=== PATIENT | male | born 1955 | race Caucasian/White ===

== ENCOUNTER → 2024-05-24 10:53 | Outpatient (REF) | payer MEDICARE, SELFPAY ==
[2024-05-24 12:19] LABS: % Basophils 0.8 % (0-2); % Eosinophils 1.9 % (0-6); % Immature Granulocytes 0.4 % (0-0.5); % Lymphocytes 22.7 % (20.5-51.1); % Monocytes 15.4 % (1.7-9.3); % Neutrophils 58.8 % (42.2-75.2); Absolute Eosinophils 0.1 10^3/uL (0-0.7); Absolute Lymphocytes 1.2 10^3/uL (1.2-3.4); Absolute Monocytes 0.8 10^3/uL (0.1-0.6); Absolute Neutrophils 3.1 10^3/uL (1.4-6.5); Hematocrit 44.5 % (39.0-52.0); Hemoglobin 15.1 g/dL (13.0-18.0); Mean Corp Hgb Conc. 33.9 g/dL (33.0-37.0); Mean Corpuscular Hgb 30.1 pg (27.0-31.0); Mean Corpuscular Volume 88.6 fL (80.0-94.0); Mean Platelet Volume 8.7 fL (7.4-10.4); Nucleated Red Blood Cells % 0 % (-); Platelet Count 301 10^3/uL (130-400); Red Blood Cell Count 5.02 10^6/uL (4.70-6.10); Red Cell Dist. Width 12.9 % (11.5-14.5); White Blood Cell Count 5.2 10^3/uL (4.8-10.8)
[2024-05-24 12:37] LABS: ALT (SGPT) 17 U/L (0-50); AST (SGOT) 24 U/L (17-59); Albumin 4.2 g/dl (3.5-5.0); Alkaline Phosphatase 126 U/L (38-126); Blood Urea Nitrogen 18 mg/dl (9-20); Calcium 9.5 mg/dl (8.4-10.2); Carbon Dioxide 26 mmol/L (22-30); Chloride 100 mmol/L (98-107); Creatine Phosphokinase 81 U/L (55-170); Glucose 98 mg/dl (70-99); Potassium 4.7 mmol/L (3.5-5.1); Sodium 135 mmol/L (135-145); Total Bilirubin 0.5 mg/dl (0.2-1.3); Total Protein 6.6 g/dl (6.3-8.2); eGFR > 60.00
[2024-05-24 13:08] LABS: TSH 2.94 uIU/ml (0.47-4.68)
[2024-05-24 13:43] LABS: Vitamin B12 277 pg/ml (239-931)
[2024-05-24 13:56] LABS: Urine Albumin Trace (Neg - Trace); Urine Bilirubin 1+ (Negative); Urine Character Clear (Clear); Urine Color Yellow; Urine Glucose Negative (Negative); Urine Ketone Negative (Negative); Urine Leukocyte Negative (Negative); Urine Nitrite Negative (Negative); Urine Occult Blood Negative (Negative); Urine Urobilinogen 1+ (Neg - 1+)
[2024-05-24 14:59] LABS: Folate 6.5 ng/ml (2.76-20)
[2024-05-24 15:29] LABS: Urine Protein 9 mg/dl
[2024-05-24 23:11] LABS: Complement C3 135 mg/dl (88-165)
[2024-05-25 00:11] LABS: Hepatitis C Antibody Negative (Negative)
[2024-05-26 15:57] LABS: Quantiferon Mitogen minus NIL 4.41 IU/mL; Quantiferon NIL 0.02 IU/mL; Quantiferon TB Gold Plus Negative (Negative)
[2024-05-26 23:22] LABS: ds-DNA Ab, IgG Reflex To Titer 16 IU (0-24)
[2024-05-27 01:51] LABS: CCP Antibody IgG/IgA 3 Units (0-19)
== END ==
LOC: REG 10:53
PROVIDERS: ATTENDING PHYSICIAN Internal Medicine Rheumatology; FAMILY PHYSICIAN Internal Medicine
DX: M06.4 Inflammatory polyarthropathy (principal); D47.2 Monoclonal gammopathy; E03.9 Hypothyroidism, unspecified; E53.8 Deficiency of other specified B group vitamins; M19.041 Primary osteoarthritis, right hand; M25.511 Pain in right shoulder; M25.512 Pain in left shoulder; M25.552 Pain in left hip; M79.10 Myalgia, unspecified site; R76.8 Other specified abnormal immunological findings in serum; Z11.1 Encounter for screening for respiratory tuberculosis; Z53.20 Procedure and treatment not carried out because of patient's decision for unspecified reasons; Z68.26 Body mass index [BMI] 26.0-26.9, adult
CPT/HCPCS: 36415; 73030; 73130; 73523; 80053; 81003; 82550; 82570; 82607; 82746; 82784; 83521; 84155; 84156; 84165; 84443; 85025; 86160; 86200; 86225; 86235; 86334; 86480; 86803